=== PATIENT | female | born 1965 | race African-American/Black ===

== ENCOUNTER 2019-05-31 10:53 | Emergency (ER) | payer MEDICAID ==
[~2019-05-31] VITALS: Ht 157.5 cm; Wt 63.0 kg
[2019-05-31 10:58] VITALS: BP 123/53
== END 2019-05-31 12:52 | disposition left against medical advice (07) ==
LOC: MED 10:53
DX: R10.10 Upper abdominal pain, unspecified (principal)
CPT/HCPCS: 74022; 81025; 99283

== ENCOUNTER 2019-06-08 13:22 | Emergency (ER) | payer MEDICAID ==
--- NOTE | 2019-06-08 13:51 | NUR ---
PATIENT LEFT WITHOUT BEING SEEN BY DR. BRYAN. NO FURTHER CARE PROVIDED FOR PATIENT.
--- NOTE | 2019-06-08 14:54 | NUR ---
Hardy jackson in ED - 06/08/19 at 1519 by [facility] PT BIB [facility] TO ER BED 3
== END 2019-06-08 13:51 | disposition left against medical advice (07) ==
LOC: MED 13:22
DX: Z53.21 Procedure and treatment not carried out due to patient leaving prior to being seen by health care provider (principal)

== ENCOUNTER 2019-08-05 21:29 | Inpatient (IN) | payer MEDICAID ==
[~2019-08-05] VITALS: Ht 162.6 cm; Wt 68.0 kg
[2019-08-05 21:37] VITALS: BP 130/94
--- NOTE | 2019-08-05 21:39 | NUR ---
VSS. IN LOBBY AWAITING BED IN ED.
--- NOTE | 2019-08-05 22:16 | NUR ---
PT WHEELCHAIR ASSISTED TO CHB
--- NOTE | 2019-08-05 22:59 | NUR ---
PT WHEELCHAIR ASSISTED TO BED 08
--- NOTE | 2019-08-05 22:59 | NUR ---
54 Y/O FEMALE SEEN AT [facility] GIVEN RX OF PAIN MEDICATION AND DISCHARGED. WOUNDS CLEANED AND DRESSED BY EMT. LARGE WOUND ON RIGHT LEG AND 2 WOUNDS ON THE LEFT LOWER LEG; NO ACTIVE BLEEDING; NO DISCHARGE NOTED. WHEELCHAIR ASSISTED TO BED. PAIN IS A 10/10 PAIN. ERMD MADE AWARE OF STATUS. SIDE RAILSX1. WILL CONTINUE TO MONITOR. PMH:DENIES RX:DENIES NKDA
--- NOTE | 2019-08-06 00:03 | NUR ---
PATIENT IS A/OX 3 AND IS SITTING QUIETLY IN BED. WILL CONTINUE TO MONITOR.
[2019-08-06 00:05] LABS: BASOPHILS # (AUTO) 0.1 K/uL (0.00-0.22); BASOPHILS % (AUTO) 0.7 % (0.0-2.0); EOSINOPHILS % (AUTO) 0.4 % (0.0-4.0); HEMATOCRIT 37.7 % (36-48); HEMOGLOBIN 11.8 g/dL (12.0-16.0); LYMPHOCYTES # (AUTO) 2.5 K/uL (2.5-16.5); LYMPHOCYTES % (AUTO) 28.1 % (20.5-51.1); MEAN CORPUSCULAR HEMOGLOBIN 30 pg (27-31); MEAN CORPUSCULAR HGB CONC 31 g/dL (33-37); MEAN CORPUSCULAR VOLUME 94.6 fL (80-94); MONOCYTES # (AUTO) 0.7 K/uL (0.8-1.0); MONOCYTES % (AUTO) 7.9 % (1.7-9.3); NEUTROPHILS # (AUTO) 5.7 K/uL (1.8-7.7); NEUTROPHILS % (AUTO) 62.9 % (42.2-75.2); PLATELET COUNT (AUTO) 332 K/uL (140-450); RED BLOOD CELL COUNT(AUTO) 3.99 MIL/uL (4.20-5.40); RED CELL DISTRIBUTION WIDTH 17.2 % (11.6-13.7)
[2019-08-06 00:21] LABS: BARBITURATE, URINE NEG. ng/ml (NEG <=200); BENZODIAZEPINE, URINE NEG. ng/mL (NEG <=200); CANNABINOID, URINE POS. ng/mL (NEG <=50); COCAINE, URINE NEG. ng/mL (NEG <=300); OPIATE, URINE POS. ng/mL (NEG <=2000); PHENCYCLIDINE SCREEN,URINE NEG. ng/mL (NEG <=25)
[2019-08-06 00:25] LABS: ANION GAP 18.1 (8-16); CARBON DIOXIDE 21.7 mmol/L (21-32); CREATININE 1.4 mg/dL (0.6-1.3); POTASSIUM 4.8 mmol/L (3.5-5.1)
[2019-08-06] MEDS ORDERED: VANCOMYCIN 1,000 MG in DEXTROSE 5% 250 ML IV ONE (00:35)
[2019-08-06] MEDS ORDERED: PIPERACILLIN/TAZOBACTAM 3.375 GM in DEXTROSE 5% 50 ML IV ONE (00:35)
[2019-08-06] MEDS ORDERED: NACL 0.9% 2,000 ML IV ONE (00:35)
[2019-08-06] MEDS ORDERED: diphenhydrAMINE 50 MG/ML VIAL IVP ONE (00:55)
[2019-08-06 00:56] LABS: APPEARANCE,URINE CLOUDY (CLEAR); BILIRUBIN,URINE NEGATIVE (NEGATIVE); BLOOD, URINE 1+ (NEGATIVE); COLOR,URINE YELLOW (YELLOW); LEUKOCYTE ESTERASE ,URINE 2+ (NEGATIVE); NITRITE, URINE NEGATIVE (NEGATIVE); UGLUCOSE NEGATIVE (NEGATIVE)
[2019-08-06] MEDS ORDERED: PIPERACILLIN/TAZOBACTAM 3.375 GM VIAL IV ONE (01:00)
--- NOTE | 2019-08-06 01:00 | NUR ---
PATIENT RESTING WITH EYES CLOSED. WILL CONTINUE TO MONITOR.
[2019-08-06 01:15] LABS: RBC,URINE 11-20 (MOD) /HPF (0-5); TRICHOMONAS,URINE Many /HPF (None Seen); WBC,URINE 16-25 (MOD) /HPF (0-5)
[2019-08-06] MEDS ORDERED: VANCOMYCIN 1,000 MG VIAL ONE (01:34)
[2019-08-06] MEDS ORDERED: NACL 0.9% 1,000 ML IV SCH (01:44)
[2019-08-06] MEDS ORDERED: DOCUSATE SODIUM 100 MG GELCAP PO PRN (01:45)
[2019-08-06] MEDS ORDERED: ACETAMINOPHEN 325 MG TAB PO PRN (01:45)
[2019-08-06] MEDS ORDERED: ONDANSETRON 4 MG/2 ML VIAL IM/IVP PRN (01:45)
[2019-08-06] MEDS ORDERED: HYDROcodone/APAP 5/325 MG 1 TAB TAB PO PRN (01:45)
[2019-08-06] MEDS ORDERED: ZOLPIDEM 5 MG TAB PO ONE (01:55)
[2019-08-06 02:20] LABS: PROTHROMBIN TIME 12.4 secs (10.8-13.4)
[2019-08-06 02:31] LABS: CHOL/HDL RATIO 4.3 (1-4.5); MAGNESIUM 1.8 mg/dL (1.8-2.4); PHOSPHORUS 3.3 mg/dL (2.5-4.9); THYROID STIMULATING HORMONE 3.03 uIU/mL (0.34-3.74)
[2019-08-06] MEDS ORDERED: LORazepam 2 MG/ML VIAL IVP ONE (02:35)
--- NOTE | 2019-08-06 02:39 | NUR ---
PATIENT RIPED OUT IV AND DEMANDING MORPHINE. GIVEN ATIVAN IM PER DR SALINAS
--- NOTE | 2019-08-06 03:01 | NUR ---
PATIENT IS RESTING WITH EYES CLOSED. VSS. WILL CONTINUE TO MONITOR.
--- NOTE | 2019-08-06 03:27 | NUR ---
PLACED 22 GAUGE IV IN THE RFA.
--- NOTE | 2019-08-06 04:01 | NUR ---
LACTIC ACID 5.8; NOTIFIED DR. STRATTON. WILL CONTINUE TO MONITOR.
--- NOTE | 2019-08-06 05:42 | NUR ---
PATIENT AT 91%-92% ON 2LPM. NOTED AUDIBLE WHEEZING. NOTIFIED DR. STRATTON. WILL CONTINUE TO MONITOR
--- NOTE | 2019-08-06 05:50 | NUR ---
DR. ROGER AT BEDSIDE EVALUATING PATIENT. TITRATED N/C TO 4LPM PER DOCTOR'S ORDERS. WILL CONTINUE TO MONITOR.
[2019-08-06] MEDS ORDERED: ALBUTEROL SULFATE/IPRATROPIU 3 ML SOL IH PRN (05:55)
[2019-08-06] MEDS ORDERED: hydrALAZINE 20 MG/ML VIAL IM SCH (06:05)
[2019-08-06] MEDS ORDERED: hydrALAZINE 20 MG/ML VIAL ONE (06:21)
--- NOTE | 2019-08-06 06:26 | NUR ---
ADMINISTERED APRESOLINE 20MG/1ML IM PER DR. STRATTON'S ORDERS FOR BLOOD PRESSURE OF 166/99. WILL CONTINUE TO MONITOR.
[2019-08-06] MEDS ORDERED: VANCOMYCIN PER PHARMACY MC PRN (06:35)
[2019-08-06] MEDS: ALBUTEROL SULFATE/IPRATROPIU 3 ML SOL IH SCH ×3 (07:00→20:43)
--- NOTE | 2019-08-06 07:35 | NUR ---
RECEIVED REPORT FROM NIGHT ER NURSE JEANA. PT CAME TO UNIT VIA [facility]. PT WAS TRANSFERRED TO BED FROM [facility]. PT IS RESTLESS IN BED. NOTED WITH WOUNDS ON BILATERAL LOWER LEGS. WOUND PHOTOGRAPH TAKEN IN ER. BELONGINGS LIST SIGNED FROM ER. VITAL SIGNS TAKEN IS WITHIN NORMAL LIMITS. SAFETY MEASURES IN PLACE. CALL LIGHT IN REACH.
--- NOTE | 2019-08-06 07:38 | NUR ---
Admited to MED SURG Will go to room 111-B. Belongings list completed. Report to .
[2019-08-06 07:45] VITALS: BP 131/74
--- NOTE | 2019-08-06 10:06 | NUR ---
PATIENT HAS BEEN SCREENED AND CATEGORIZED HIGH NUTRITION RISK. PATIENT WILL BE SEEN WITHIN 1-2 DAYS OF ADMISSION. 08/06/19-08/07/[address]
--- NOTE | 2019-08-06 10:54 | NUR ---
WOUND CARE EVALUATION NOTE: PT. ADMITTED WITH BLE MULTIPLE WOUNDS, PT IS ASLEEP UN ABLE TO WAKE UP FOR HISTORY, PRIMARY RN EXPLAIN PT. AT WITHDRAW STAGE, BLE ASSESSED WITH PRIMARY RN. INTEGUMENTARY: -VASCULAR ULCER TO RIGHT LOWER LEG 5X4X0.3CM, IRREGULAR WOUND SHAPE WITH WOUND BED IS RED AND DRY, WOUND EDGE IS FLAT, NO ODOR, RENETTA -WOUND SKIN ERYTHEMA, NO SWELLING NORMAL SKIN TEMP. -VASCULAR ULCERS TO LEFT LOWER LEG WITH MULTIPLE CLEAR FLUIDS INTACT BLISTERS. ON LATERAL CALF A 2X2CM BROWN DRY SCAB OBSERVED.RENETTA-WOUND SKIN INTACT NO ERYTHEMA. RECOMMENDATIONS: -BLE ULTRA SOUNDS, NO COMPRESSION DRESSING TILL US RESULT READ. -CLEANSE RIGHT LOWER LEG WOUND WITH NS, APPLY HYDROGEL WITH ADAPTIC DRESSING COVER WITH DRY DRESSING QD AND PRN IF SOILING. -CLEANSE LEFT LOWER LEG BLISTERS WITH NS, WRAP WIT XEROFORM DRESSING AND KERLIX ROLL SECURED WITH TAPE 2X A WEEK ON TUESDAY AND TUESDAY AND PRN IF SOILING. -KEEP BILATERAL FEET DRY AND CLEAN AT ALL TIMES. RECOMMENDATIONS DISCUSSED WITH PRIMARY RN
--- NOTE | 2019-08-06 11:00 | NUR ---
UNABLE TO COLLECT WOUND CULTURE FROM BILATERAL LEGS. NO EXUDATE NOTED IN LEGS. WOUND IS DRY AND OPEN. REPORTED TO DR MERINO.
[2019-08-06] MEDS ORDERED: NACL 0.9% 1,500 ML IV SCH (11:20)
[2019-08-06] MEDS: DEXT 5% / NACL 0.9% 500 ML IV SCH ×3 (11:53→21:00)
[2019-08-06] MEDS ORDERED: PIPERACILLIN/TAZOBACTAM 2.25 GM in DEXTROSE 5% 50 ML IV SCH (12:00)
[2019-08-06] MEDS ORDERED: metroNIDAZOLE 500 MG/NS PREMIX 100 ML IV SCH (13:00)
--- NOTE | 2019-08-06 13:00 | NUR ---
PT IS IN BED. NO DISTRESS NOTED AT THIS TIME. WOUND CARE DONE TO BILATERAL LOWER LEGS. PT TOLERATED WELL. NO COMPLAINS OF PAIN. PT RESPONDS TO NAME. CALL LIGHT IN REACH.
[2019-08-06] MEDS: SKINTEGRITY HYDROGEL TP SCH (13:46)
[2019-08-06] MEDS: NON ADHERENT DRESSING TP SCH (13:47)
--- NOTE | 2019-08-06 15:00 | NUR ---
PT IS RESTING IN BED AT THIS TIME. NO DISTRESS NOTED. PT IS COOPERATIVE AND RESPONDING TO NAME. CALL LIGHT IN REACH.
[2019-08-06 16:00] VITALS: BP 137/104
--- NOTE | 2019-08-06 16:01 | NUR ---
08/06/19 RD INITIAL ASSESSMENT COMPLETED PLEASE REFER TO NUTRITION ASSESSMENT UNDER CARE ACTIVITY FOR ESTIMATED NUTRITIONAL NEEDS. 1. CONTINUE NPO MEDICALLY APPROPRIATE 2. IF/WHEN PT IS MEDICALLY STABLE CONSIDER A SWALLOWING EVALUATION TO ADVANCE TO PO DIET 3. CONSIDER ENSURE BID AND RAMON BID FOR WOUND HEALING ONCE MEDICALLY APPROPRIATE FOR PO INTAKE 4. RD TO FOLLOW-UP 2-3 DAYS, HIGH RISK SAULO YAO, FANNY
--- NOTE | 2019-08-06 17:00 | NUR ---
PT IS RESTING IN BED AT THIS TIME. NO DISTRESS NOTED. PT IS COOPERATIVE AND RESPONDING TO NAME. CALL LIGHT IN REACH.
--- NOTE | 2019-08-06 19:19 | NUR ---
SHIFT REPORT GIVEN TO NIGHT NURSE. PT IS IN STABLE CONDITION. RESTING IN BED. CALL LIGHT IN REACH.
--- NOTE | 2019-08-06 19:30 | NUR ---
RECEIVED BEDSIDE REPORT FROM AM SHIFT RN FOR PT'S CONTINUITY OF CARE. PT IS ASLEEP, AROUSABLE TO NAME, ON ROOM AIR, HAS RIGHT FA 22G WITH D5NS AT 100ML/HR, HAS BLE OPEN WOUNDS WITH DRESSING IN PLACE, DRY AND INTACT, NO SIGNS OF DISTRESS AT THIS TIME. SAFETY MEASURES IN PLACE, AND CALL LIGHT IS WITHIN REACH. WILL MONITOR PT THROUGHOUT SHIFT.
--- NOTE | 2019-08-06 20:52 | NUR ---
RECEIVED PATIENT ON ROOM AIR, PULSE OX SAT 99%. SCHEDULED BREATHING TREATMENT ADMINISTERED. TOLERATED WELL WITHOUT ADVERSE SIDE EFFECTS. NO ACUTE RESPIRATORY DISTRESS NOTED. WILL CONTINUE TO MONITOR.
[2019-08-06] MEDS: metroNIDAZOLE 500 MG TAB PO SCH (20:57)
--- NOTE | 2019-08-06 21:00 | NUR ---
PT ASLEEP, AROUSABLE TO NAME AND SHAKING, ADMINISTERED SCHEDULED MEDICATIONS ORDERED. PT TEACHING GIVEN, PT UNABLE TO COMPREHEND OR VERBALIZE UNDERSTANDING. PT LETHARGIC AND SLEEPY, DENIES ANY PAIN AT THIS TIME. WILL CONTINUE TO MONITOR PT.
[2019-08-07] VITALS: BP 133/78
--- NOTE | 2019-08-07 | NUR ---
VS CHECKED AND CHARTED. PT ASLEEP WITH NO SIGNS OF DISTRESS. ADMINISTERED SCHEDULED IV ABX ORDERED. WOUND CULTURE ON BLE COLLECTED. LEFT LEG DRESSING CHANGED, RIGHT LEG DRESSING DRY AND INTACT. PT DID NOT WAKE UP WITH WOUND CLEANING AND SWAB. WILL CONTINUE TO MONITOR PT.
[2019-08-07] MEDS ORDERED: VANCOMYCIN 1,000 MG VIAL ONE (00:57)
[2019-08-07] MEDS: VANCOMYCIN 1,000 MG in DEXTROSE 5% 250 ML IV SCH (01:26)
[2019-08-07] MEDS: DEXT 5% / NACL 0.9% 500 ML IV SCH ×6 (02:10→23:15)
--- NOTE | 2019-08-07 03:00 | NUR ---
MADE ROUNDS. PT ASLEEP WITH NO SIGNS OF DISTRESS. WILL CONTINUE TO MONITOR PT.
--- NOTE | 2019-08-07 03:10 | NUR ---
FOLLOWED UP WITH ISAIAS (RAD) RE: US VENOUS AND ARTERIAL ORDERS FROM 08/06 AT 0700, NOT PERFORMED. ISAIAS WILL CALL BACK FOR UPDATE.
--- NOTE | 2019-08-07 04:21 | NUR ---
PT ASLEEP WITH NO SIGNS OF DISTRESS. WILL CONTINUE TO MONITOR PT.
--- NOTE | 2019-08-07 05:00 | NUR ---
CALLED RT FOR F/U WITH STATUS OF US ARTERIAL AND VENOUS. NO ANSWER.
--- NOTE | 2019-08-07 06:22 | NUR ---
ADMINISTERED NEW IVF ORDERED. PT REQUESTING FOR BREAKFAST. INFORMED PT THAT MD ORDER IS NPO EXCEPT MEDS, AND WILL MENTION TO MD PTS REQUEST. WILL ENDORSE PT TO AM SHIFT RN FOR PT'S CONTINUITY OF CARE.
--- NOTE | 2019-08-07 06:30 | NUR ---
CALLED RT WITH NO ANSWER. TO F/U WITH US VENOUS AND ARTERIAL STATUS. WILL ENDORSE TO AM SHIFT RN TO F/U.
[2019-08-07] MEDS: ALBUTEROL SULFATE/IPRATROPIU 3 ML SOL IH SCH ×2 (06:47→13:00)
--- NOTE | 2019-08-07 07:30 | NUR ---
REPORT RECEIVED FROM NURSE JENSEN. PT AWAKE, ABLE TO COMMUNICATE NEEDS, C/O FEELING HUNGRY, WILL FOLLOW UP WITH MD FOR DIET. PT DENIES PAIN, NO S/S OF ACUTE DISTRESS NOTED. CALL LIGHT AND PERSONAL ITEMS WITHIN EASY REACH, SAFETY PRECAUTIONS IN PLACE, WILL CONTINUE TO MONITOR.
[2019-08-07 07:34] LABS: BASOPHILS % (AUTO) 0.6 % (0.0-2.0); EOSINOPHILS % (AUTO) 0.6 % (0.0-4.0); HEMATOCRIT 36.8 % (36-48); HEMOGLOBIN 11.7 g/dL (12.0-16.0); LYMPHOCYTES # (AUTO) 1.4 K/uL (2.5-16.5); LYMPHOCYTES % (AUTO) 21.7 % (20.5-51.1); MEAN CORPUSCULAR HEMOGLOBIN 30 pg (27-31); MEAN CORPUSCULAR HGB CONC 32 g/dL (33-37); MEAN CORPUSCULAR VOLUME 93.1 fL (80-94); MONOCYTES # (AUTO) 0.8 K/uL (0.8-1.0); MONOCYTES % (AUTO) 11.9 % (1.7-9.3); NEUTROPHILS # (AUTO) 4.2 K/uL (1.8-7.7); NEUTROPHILS % (AUTO) 65.2 % (42.2-75.2); PLATELET COUNT (AUTO) 384 K/uL (140-450); RED BLOOD CELL COUNT(AUTO) 3.96 MIL/uL (4.20-5.40); RED CELL DISTRIBUTION WIDTH 17.4 % (11.6-13.7); WHITE BLOOD COUNT (AUTO) 6.5 K/uL (4.8-10.8)
[2019-08-07 07:44] LABS: ANION GAP 14.6 (8-16); CARBON DIOXIDE 21.1 mmol/L (21-32); CREATININE 1.1 mg/dL (0.6-1.3); POTASSIUM 4.7 mmol/L (3.5-5.1)
[2019-08-07 08:00] VITALS: BP 153/89
[2019-08-07 08:22] LABS: MAGNESIUM 1.7 mg/dL (1.8-2.4); PHOSPHORUS 2.6 mg/dL (2.5-4.9)
--- NOTE | 2019-08-07 08:35 | NUR ---
MAGNETIC HEALER ON UNIT, NOTIFIED PT IS ORDERED A VENOUS AND ARTERIAL STUDY, PER TECH, WILL BE PERFORMED THIS MORNING.
[2019-08-07] MEDS: LACTOBACILLUS RHAMNOSUS GG 1 EACH CAP PO SCH (08:40)
[2019-08-07] MEDS: metroNIDAZOLE 500 MG TAB PO SCH ×2 (08:40→21:14)
--- NOTE | 2019-08-07 10:30 | NUR ---
PT SLEEPING APPEARS COMFORTABLE. CALL LIGHT AND PERSONAL ITEMS REMAIN WITHIN EASY REACH, SAFETY PRECAUTIONS IN PLACE, NO S/S OF ACUTE DISTRESS NOTED, WILL CONTINUE TO MONITOR.
[2019-08-07] MEDS: NON ADHERENT DRESSING TP SCH (12:06)
[2019-08-07] MEDS: SKINTEGRITY HYDROGEL TP SCH (12:06)
[2019-08-07] MEDS: MORPHINE SULFATE 2 MG/ML SYR IVP PRN ×2 (12:06→21:18)
--- NOTE | 2019-08-07 12:20 | NUR ---
Pt remains a/o able to communicate needs, Peripheral IV to RFA no longer patent, catheter removed, tolerated well, catheter intact, new peripheral IV 22G started to LFA, tolerated well, positive flash and flush. Dressings to BLE changed per order, tolerated well, Pt c/o pain with dressing change 02/17, administered pain medication as order. Call light and personal items placed within easy reach, safety precautions in place, US at bedside to complete exam, will continue to monitor.
[2019-08-07] MEDS ORDERED: INFLUENZA VACCINE QUAD 0.5 ML SYR IMVAC PRN (13:00)
[2019-08-07] MEDS ORDERED: MAGNESIUM OXIDE 400 MG TAB PO SCH (13:05)
--- NOTE | 2019-08-07 13:51 | NUR ---
HUMAN RESOURCES MGR assessment/discharge plan High Risk DC Screen Yes Name: No one Pre-Admission Living Arrangements: Lives Alone Healthcare Decision Maker: Patient Advance Directive No Tentative Discharge Plan Summary: Patient is a 54 year old female admitted for sepsis 2/2 open wound. I met with patient at bedside. Patient lives alone at home and plans to return home upon discharge. Patient reported she does not have a pcp and goes to [facility] when she does not feel well. She then began to make bizarre comments, stating there is an supervising appraiser in her home who will not leave. She reported the supervising appraiser is stalking her and that she is scared of her wheelchair. Per patient's nurse Saquaria, patient might be having withdrawals. HUMAN RESOURCES MGR/[employer] Finisher Helper will meet with patient at a later time to complete assessment. Signature: HERNAN Tomas Date: Aug 07, 2019
[2019-08-07 16:00] VITALS: BP 156/96
--- NOTE | 2019-08-07 16:00 | NUR ---
PT ASLEEP, APPEARS COMFORTABLE, NO S/S OF ACUTE DISTRESS NOTED AT THIS TIME. CALL LIGHT AND PERSONAL ITEMS REMAIN WITHIN EASY REACH, SAFETY PRECAUTIONS IN PLACE, WILL CONTINUE TO MONITOR
--- NOTE | 2019-08-07 18:30 | NUR ---
PT AWAKE A/O ABLE TO COMMUNICATE NEEDS, HAVING DINNER TOLERATING WELL, DENIES PAIN, NO S/S OF ACUTE DISTRESS NOTED. CALL LIGHT AND PERSONAL ITEMS REMAIN WITHIN EASY REACH, SAFETY PRECAUTIONS IN PLACE, WILL CONTINUE TO MONITOR
--- NOTE | 2019-08-07 19:15 | NUR ---
REPORT GIVEN TO NIGHT NURSE MIKEY, PT REMAINS A/O ABLE TO COMMUNICATE NEEDS, DENIES PAIN, NO S/S OF ACUTE DISTRESS, CALL LIGHT AND PERSONAL ITEMS WITHIN REACH, SAFETY PRECAUTIONS REMAIN IN PLACE.
--- NOTE | 2019-08-07 19:30 | NUR ---
RECEIVED BEDSIDE REPORT FROM AM SHIFT RN FOR PT'S CONTINUITY OF CARE. PT IS ASLEEP WITH NO SIGNS OF DISTRESS. PT IS ON ROOM AIR, HAS LEFT LOWER FA 22G WITH D5NS AT 100ML/HR, HAS BLE OPEN WOUNDS WITH DRESSING DRY AND INTACT. SAFETY MEASURES IN PLACE, AND CALL LIGHT IS WITHIN REACH. WILL MONITOR PT. THROUGHOUT SHIFT.
--- NOTE | 2019-08-07 21:15 | NUR ---
ADMINISTERED SCHEDULED MEDICATIONS ORDERED. PT C/O PAIN. ADMINISTERED PRN IVP PAIN MEDICATION ORDERED. PT TOLERATED THEM WELL. PT DENIES ANY OTHER NEEDS AT THIS TIME.
--- NOTE | 2019-08-07 22:20 | NUR ---
RECEIVED PT ON ROOM AIR WITH SP02 OF 98% AND CLEAR BREATH SOUNDS. NO RESPIRATORY DISTRESS NOTED AT THIS TIME. WILL CONTINUE TO MONITOR PT.
[2019-08-07] MEDS ORDERED: BISACODYL 10 MG SUPP RC SCH (23:35)
[2019-08-08] VITALS: BP 147/90
--- NOTE | 2019-08-08 00:30 | NUR ---
PT ASLEEP WITH NO SIGNS OF DISTRESS. WILL CONTINUE TO MONITOR PT.
[2019-08-08] MEDS: VANCOMYCIN 1,000 MG in DEXTROSE 5% 250 ML IV SCH (01:17)
--- NOTE | 2019-08-08 01:20 | NUR ---
VANCO TROUGH RESULTED - 6.1. ADMINISTERED SCHEDULED IV ABX VANCO ORDERED.
--- NOTE | 2019-08-08 02:00 | NUR ---
PT WOKE UP DT ADMISSION ON BED A. PT REQUESTED AND PROVIDED COFFEE AND SNACK. DENIES ANY PAIN AT THIS TIME. WILL CONTINUE TO MONITOR PT.
[2019-08-08] MEDS: MORPHINE SULFATE 2 MG/ML SYR IVP PRN ×4 (05:04→19:50)
--- NOTE | 2019-08-08 05:05 | NUR ---
PT WOKE UP AND C/O BLE PAIN. ADMINISTERED PRN IVP PAIN MEDICATION ORDERED. PT WENT BACK TO SLEEP RIGHT AWAY. WILL CONTINUE TO MONITOR PT.
[2019-08-08] MEDS: DEXT 5% / NACL 0.9% 500 ML IV SCH ×3 (06:13→16:44)
--- NOTE | 2019-08-08 06:13 | NUR ---
ADMINISTERED SCHEDULED IVF ORDERED. LAB PERSONNEL AT BEDSIDE FOR AM LAB DRAW, PT ASLEEP WITH NO SIGNS OF DISTRESS. WILL ENDORSE TO AM SHIFT RN FOR PT'S CONTINUITY OF CARE.
[2019-08-08 07:21] LABS: BASOPHILS % (AUTO) 0.5 % (0.0-2.0); EOSINOPHILS # (AUTO) 0.1 K/uL (0-0.4); EOSINOPHILS % (AUTO) 1.2 % (0.0-4.0); HEMATOCRIT 37.2 % (36-48); HEMOGLOBIN 11.7 g/dL (12.0-16.0); LYMPHOCYTES # (AUTO) 2.1 K/uL (2.5-16.5); LYMPHOCYTES % (AUTO) 26.3 % (20.5-51.1); MEAN CORPUSCULAR HEMOGLOBIN 29 pg (27-31); MEAN CORPUSCULAR HGB CONC 32 g/dL (33-37); MEAN CORPUSCULAR VOLUME 93.2 fL (80-94); MONOCYTES % (AUTO) 12.3 % (1.7-9.3); NEUTROPHILS # (AUTO) 4.8 K/uL (1.8-7.7); NEUTROPHILS % (AUTO) 59.7 % (42.2-75.2); PLATELET COUNT (AUTO) 350 K/uL (140-450); RED BLOOD CELL COUNT(AUTO) 3.99 MIL/uL (4.20-5.40); RED CELL DISTRIBUTION WIDTH 17.4 % (11.6-13.7); WHITE BLOOD COUNT (AUTO) 8.1 K/uL (4.8-10.8)
--- NOTE | 2019-08-08 07:25 | NUR ---
RECEIVED REPORT FROM AZAM JENSEN. PT AROUSABLE TO NAME, ORIENTED X2-3, NEED FREQUENT REMINDERS AND REORIENTATION. IV ON LT FA 22 GA RUNNING IVF PER ORDER. RESPIRATIONS EVEN AND UNLABORED ON RA. ABD SOFT, ACTIVE BS. NOTED WOUND DRESSING TO BLE, DRESSING CLEAN, DRY AND INTACT, SKIN IS WARM TO TOUCH. REVIEWED POC WITH PT, PT WILL NEED REINFORCEMENT. PT ON FALL RISK PRECAUTIONS, SAFETY MEASURES IN PLACE, CALL LIGHT WITHIN REACH.
[2019-08-08 07:35] LABS: CARBON DIOXIDE 21.9 mmol/L (21-32); CREATININE 1.1 mg/dL (0.6-1.3); POTASSIUM 4.9 mmol/L (3.5-5.1)
[2019-08-08 08:00] VITALS: BP 134/95
[2019-08-08 08:25] LABS: MAGNESIUM 1.6 mg/dL (1.8-2.4); PHOSPHORUS 3.3 mg/dL (2.5-4.9)
[2019-08-08] MEDS: metroNIDAZOLE 500 MG TAB PO SCH ×2 (09:16→20:00)
[2019-08-08] MEDS: LACTOBACILLUS RHAMNOSUS GG 1 EACH CAP PO SCH (09:16)
--- NOTE | 2019-08-08 09:16 | NUR ---
ADMINISTERED MEDICATIONS PER ORDER, PT VERBALIZED UNDERSTANDING OF INDICATIONS AND POTENTIAL SIDE EFFECTS. PT SHOWS SIGNS OF CONFUSION, HITTING SIDE RAILS AND SAYING "YOU'RE BAD" AND LAUGHING AFTERWARDS. ORIENTED PT TO CALL LIGHT TO CLARIFY ANY QUESTIONS WITH RN. WILL CONTINUE TO REORIENT PATIENT.
--- NOTE | 2019-08-08 11:30 | NUR ---
PT IS SLEEPING IN SUPINE POSITION, RESPIRATIONS EVEN AND UNLABORED ON RA.
[2019-08-08] MEDS: VANCOMYCIN 500 MG in DEXTROSE 5% 100 ML IV SCH (13:28)
[2019-08-08] MEDS: SKINTEGRITY HYDROGEL TP SCH (13:33)
[2019-08-08] MEDS: NON ADHERENT DRESSING TP SCH (13:33)
--- NOTE | 2019-08-08 13:33 | NUR ---
WOUND DRESSINGS ON BILATERAL LEGS CHANGED AT THIS TIME. HOME THEATER SPECIALIST NORI ASSISTING AT BEDSIDE. PT TOLERATED WELL BUT ASKED FOR PAIN MEDICATION FOR LEVEL 7/10 PAIN TO RT LEG, WILL ADMINISTER PAIN MED PER ORDER.
[2019-08-08] MEDS ORDERED: MAG SULF 2000 MG/WATER PREMIX 50 ML IV SCH (14:00)
--- NOTE | 2019-08-08 14:52 | NUR ---
08/08/19 RD FOLLOW UP COMPLETED PLEASE REFER TO NUTRITION ASSESSMENT UNDER CARE ACTIVITY FOR ESTIMATED NUTRITIONAL NEEDS. 1. CONTINUE REGULAR DIET TOLERATED 2. RD TO FOLLOW-UP 5-7 DAYS, LOW RISK SAULO YAO RD
--- NOTE | 2019-08-08 15:45 | NUR ---
PT RESTING IN BED IN SUPINE POSITION. NO DISTRESS NOTED AT THIS TIME.
[2019-08-08 16:00] VITALS: BP 143/88
--- NOTE | 2019-08-08 17:25 | NUR ---
PT ASSISTED TO RESTROOM, PT VOIDED X1.
--- NOTE | 2019-08-08 19:20 | NUR ---
ENDORSED PT TO NURSE WILLOW. PT HAS NO SIGNS OF DISTRESS AT THIS TIME.
--- NOTE | 2019-08-08 19:21 | NUR ---
REPORT RECEIVED FROM AM NURSE AT BEDSIDE. PT IN STABLE CONDITION. AAOX4. INTRODUCED SELF TO PT. BOARD UPDATED. PT HAS COMPLAINTS OF PAIN. WILL MEDICATE. NO SOB. AFEBRILE. PT IS AMBULATORY. IV SITE L FA 22G RUNNING D5NS@100ML/HR PATENT AND INTACT. SKIN WARM, DRY, AND NOT INTACT DUE TO VENOUS STASIS ULCERS TO BILATERAL LOWER EXTREMITIES. BED LOCKED IN LOW POSITION. CALL ARTHUR WITHIN REACH. SAFETY PRECAUTION IN PLACE. ALL NEEDS MET AT THIS TIME.
--- NOTE | 2019-08-08 19:50 | NUR ---
MORPHINE GIVEN FOR 8/10 LEG PAIN. PT TOLERATED WELL.
--- NOTE | 2019-08-08 20:00 | NUR ---
FLAGYL GIVEN PO. HEPARIN GIVEN SUBQ. PT TOLERATED WELL.
--- NOTE | 2019-08-08 22:00 | NUR ---
PT SLEEPING COMFORTABLY BUT AROUSABLE. NO S/S OF DISTRESS NOTED. WILL CONTINUE TO MONITOR.
[2019-08-09] VITALS: BP 142/89
[2019-08-09] MEDS: DEXT 5% / NACL 0.9% 500 ML IV SCH (00:07)
[2019-08-09] MEDS: VANCOMYCIN 500 MG in DEXTROSE 5% 100 ML IV SCH (00:12)
--- NOTE | 2019-08-09 00:12 | NUR ---
ARTURO VALLEJO AND RUNNING. PT TOLERATING WELL.
--- NOTE | 2019-08-09 01:45 | NUR ---
PT SLEEPING COMFORTABLY BUT AROUSABLE. NO S/S OF DISTRESS NOTED. NO COMPLAINTS OF PAIN. NO SOB. AFEBRILE. WILL CONTINUE TO MONITOR.
--- NOTE | 2019-08-09 02:55 | NUR ---
PT ACCIDENTALLY PULLED IV. NEW IV WILL BE PLACED. CANNULA INTACT.
--- NOTE | 2019-08-09 03:10 | NUR ---
PT COMPLAINING THAT SHE WANTED TO SMOKE AND IS GOING TO LEAVE. SECURITY WAS CALLED AND IS TALKING TO HER.
--- NOTE | 2019-08-09 03:15 | NUR ---
PATIENT ELOPED. SECURITY WAS CALLED AND PATIENT STILL INSISTED ON GOING OUT FOR A SMOKE. MD NOTIFIED AND ORDERED TO REMOVE HER WHEELCHAIR FROM THE ROOM BUT PATIENT WAS UP OUT OF BED AND WALKING OUT OF HER ROOM WITH THE WHEELCHAIR. PATIENT WAS COMBATIVE AND WANTED TO LEAVE.
== END 2019-08-09 03:10 | disposition left against medical advice (07) | DRG 812 ==
LOC: MED 21:29 → MTU 08-06 01:49
PROVIDERS: ADMIT General Practice; ATTEND General Practice
DX: T43.621A Poisoning by amphetamines, accidental (unintentional), initial encounter (principal); N17.0 Acute kidney failure with tubular necrosis; G92 Toxic encephalopathy; E44.0 Moderate protein-calorie malnutrition; E72.20 Disorder of urea cycle metabolism, unspecified; E87.2 Acidosis; D68.9 Coagulation defect, unspecified; L89.893 Pressure ulcer of other site, stage 3; R18.8 Other ascites; E83.42 Hypomagnesemia; A59.01 Trichomonal vulvovaginitis; I51.7 Cardiomegaly; L03.90 Cellulitis, unspecified; F12.10 Cannabis abuse, uncomplicated; N39.0 Urinary tract infection, site not specified; E86.0 Dehydration; Y92.89 Other specified places as the place of occurrence of the external cause; K74.60 Unspecified cirrhosis of liver; R31.9 Hematuria, unspecified; F15.93 Other stimulant use, unspecified with withdrawal; D64.9 Anemia, unspecified; R73.03 Prediabetes; I73.9 Peripheral vascular disease, unspecified; Z68.25 Body mass index [BMI] 25.0-25.9, adult; F19.10 Other psychoactive substance abuse, uncomplicated; F11.10 Opioid abuse, uncomplicated
CPT/HCPCS: 36415; 71045; 76705; 80048; 80053; 80202; 80305; 81001; 82140; 83036; 83605; 83690; 83735; 83880; 84100; 84443; 85025; 85610; 85730; 87040; 87070; 87081; 87086; 87186; 93005; 93925; 93970; 94640; 96361; 96365; 96375; 99291; A6248; G0482; J0360; J1200; J1644; J2060; J2270; J2543; J3370; J3475; J3490; J7030; J7042; J7060; J7620; Q0092